=== PATIENT | female | born 1960 | race Caucasian/White ===

== ENCOUNTER → 2019-05-19 | Day surgery (SDC) | payer OTHER ==
[2019-05-19] VITALS (7 sets, daily range): BP systolic 111–125; BP diastolic 62–77; PULSE 76–94; TEMP 98.4–98.6
[~2019-05-19] VITALS: Ht 162.6 cm; Wt 61.0 kg
[~2019-05-19] MED LIST: ATIVAN 0.50.5 MG/TAB PO; CHANTIX 1MG1 MG PO; COLACE 100100 MG/CAP PO; CYMBALTA 60MG60 MG PO; LATUDA80 MG PO; MOBIC15 MG PO; NORCO 325 MG-101 TAB PO; PRINIVIL20 MG PO; PROTONIX 40MG T40 MG PO; SOMA250 MG PO; THE MEDICINE S200 M2 PO; ZOFRAN 4MG T4 MG/TAB PO; [UNRECOGNIZED DRUG - OTHER] PO; [UNRECOGNIZED DRUG - OTHER] PO
--- NOTE | 2019-05-19 09:20 | NUR ---
TO RM 8 PER CART FROM PACU. ALERT ORIENTED X 3, TALKING TO STAFF AND FAMILY. DRESSINGS CLEAN DRY INTACT. ICE OVER R SHOULDER. ABDUCTION SLING IN PLACE. ABLE TO MOVE FINGERS. DENIES PAIN OR IDSCOMFORT.
--- NOTE | 2019-05-19 09:30 | NUR ---
RECEIVED WATER AND TAKING SIPS
--- NOTE | 2019-05-19 09:45 | NUR ---
RECEIVED PEPSI, WILLIAM PUDDING.
--- NOTE | 2019-05-19 09:50 | NUR ---
B/P DROPPED - 88/74 PRIOR TO WALKING TO BATHROOM AMBULATED TO BATHROOM WITH ASSIST AND TOLERATED WELL. VOIDED AND AMBULATED BACK TO
--- NOTE | 2019-05-19 10:30 | NUR ---
OFFICE RETURNED CALL AND A POLAR PACK PRESCRIPTION WILL BE AT OFFICE TO HOUSE SUPERINTENDENT.
--- NOTE | 2019-05-19 10:45 | NUR ---
DISCHARGED PER WC BY NURSING STAFF TO PRIVATE CAR IN CARE OF -CARMEN
--- NOTE | 2019-05-19 12:56 | NUR ---
AMBULATED TO BATHROOM 2ND TIME. VOIDED AND TOLERATED WELL. PATIENT REQUESTED A POLAR PACK. OFFICE CALLED
== END ==
LOC: SDCO 05-05 07:30
DX: T84.098A Other mechanical complication of other internal joint prosthesis, initial encounter (principal); M19.90 Unspecified osteoarthritis, unspecified site; F32.9 Major depressive disorder, single episode, unspecified; F17.210 Nicotine dependence, cigarettes, uncomplicated; I10 Essential (primary) hypertension; K21.9 Gastro-esophageal reflux disease without esophagitis; D64.9 Anemia, unspecified; F41.9 Anxiety disorder, unspecified; Z86.73 Personal history of transient ischemic attack (TIA), and cerebral infarction without residual deficits; Z80.9 Family history of malignant neoplasm, unspecified; Z83.3 Family history of diabetes mellitus; Z82.61 Family history of arthritis; Z88.0 Allergy status to penicillin
CPT/HCPCS: A4619; C1713; J0171; J1100; J1885; J2250; J2704; J3010; J7120